=== PATIENT | male | born 1935 | race Caucasian/White ===

== ENCOUNTER → 2017-08-04 | Outpatient (CLI) | payer MEDICARE, BC ==
--- NOTE | 2017-08-04 07:50 | US ---
EXAMINATION TYPE: US venous doppler duplex LE DATE OF EXAM: 08/04/2017 7:30 AM COMPARISON: NONE CLINICAL HISTORY: M79.661 Pain in Left Leg,[id number] Pain Lt Lower Leg. SIDE PERFORMED: bilateral TECHNIQUE: The lower extremity deep venous system is examined utilizing real time linear array sonog brian with graded compression, doppler sonography and color-flow sonography. VESSELS IMAGED: External Iliac Vein (EIV) Common Femoral Vein Deep Femoral Vein Greater Saphenous Vein * Femoral Vein Popliteal Vein Small Saphenous Vein * Proximal Calf Veins (* superficial vessels) Right Leg: neg for RLE dvt; there is a 4.9 x 1.2 x 4.2cm complex pop fossa cyst Left Leg: neg for LLE dvt; there is a 6.8 x 2.3 x 5.1cm complex pop fossa cyst IMPRESSION: 1. No ultrasound evidence of lower extremity deep venous thrombosis. 2. Bilateral popliteal cysts.
== END | disposition home or self-care (01) ==
LOC: RADUSWWP 06:53
PROVIDERS: ATTEND Internal Medicine
DX: M71.22 Synovial cyst of popliteal space [Baker], left knee (principal); M71.21 Synovial cyst of popliteal space [Baker], right knee
CPT/HCPCS: 93970

== ENCOUNTER → 2018-07-31 | Outpatient (CLI) | payer MEDICARE, BC ==
[2018-07-31 13:11] LABS: Appearance,Urine Clear (Clear); Bilirubin,Urine Negative (Negative); Blood,Urine Negative (Negative); Color,Urine Yellow; Glucose,Urine (UA) Negative (Negative); Ketones,Urine Negative (Negative); Leukocyte Esterase,Urine Negative (Negative); Nitrite,Urine Negative (Negative); PH, Urine 6.5 (5.0-8.0); Protein,Urine Negative (Negative); Specific Gravity,Urine 1.014 (1.001-1.035); Urobilinogen,Urine <2.0 mg/dL (<2.0)
[2018-07-31 13:15] LABS: INR 1.1 (<1.2); Partial Thromboplastin Time 23.5 sec (22.0-30.0); Prothrombin Time 10.3 sec (9.0-12.0)
[2018-07-31 13:24] LABS: Albumin 4.2 g/dL (3.5-5.0); Calcium 9.6 mg/dL (8.4-10.2); Total Bilirubin 0.7 mg/dL (0.2-1.3); Total Protein 7.9 g/dL (6.3-8.2)
== END ==
LOC: LABWHC1 11:33
PROVIDERS: ATTEND Orthopaedic Surgery
DX: Z01.818 Encounter for other preprocedural examination (principal); Z01.812 Encounter for preprocedural laboratory examination; Z51.81 Encounter for therapeutic drug level monitoring; Z79.01 Long term (current) use of anticoagulants
CPT/HCPCS: 36415; 80053; 81003; 85610; 85730; 87070; 93005

== ENCOUNTER 2018-08-07 07:01 | Inpatient (IN) | payer MEDICARE, BC ==
[2018-08-01 08:28] VITALS: BMI 29.9
[~2018-08-07 07:01] MED LIST: ACETAMINOPHEN TAB 500 MG TAB PO ONE; MELOXICAM 7.5 MG TAB PO ONE; ROPIVACAINE 246.25 MG, EPINEPHrine 0.5 MG, KETOROLAC 30 MG, cloNIDine HCL/PF 80 MCG, WA... MISCELLANE ONE; TRANEXAMIC ACID 1,000 MG in SODIUM CHLORIDE 0.9% 50 ML IVPB ONE; ceFAZolin IN SWFI 2 GM/20 ML SYRINGE IVP ONE
[2018-08-07] MEDS ORDERED: NA PHOS,M-B/NA PHOS,DI-BA 133 ML ENEMA RECTAL PRN (07:08)
[2018-08-07] MEDS ORDERED: HYDROmorphone 1 MG/ML 1 ML SYRINGE IVP PRN ×3 (07:08)
[2018-08-07] MEDS ORDERED: ONDANSETRON 4 MG/2 ML VIAL IVP PRN (07:08)
[2018-08-07] MEDS ORDERED: DIAZEPAM 5 MG TAB PO PRN (07:08)
[2018-08-07] MEDS ORDERED: HYDROcodone/APAP 5-325MG 1 EACH TAB PO PRN (07:08)
[2018-08-07] MEDS ORDERED: BISACODYL 10 MG SUPP RECTAL PRN (07:08)
[2018-08-07] MEDS ORDERED: MAGNESIUM HYDROXIDE 2,400 MG/10 ML CUP PO PRN (07:08)
[2018-08-07] MEDS ORDERED: NALOXONE 0.4 MG/ML 1 ML VIAL IV PRN (07:08)
[2018-08-07] MEDS ORDERED: LIDOCAINE 1% 20 ML VIAL (10MG/ML) FOR IV START INTRADERMA ONE (07:47)
[2018-08-07] MEDS ORDERED: MIDAZOLAM 2 MG/2 ML VIAL ONE ×2 (07:47→08:46)
[2018-08-07] MEDS ORDERED: LACTATED RINGERS 1,000 ML IV ONE (07:49)
[2018-08-07] MEDS ORDERED: ONDANSETRON 4 MG/2 ML VIAL IVP ONE (07:51)
[2018-08-07] MEDS ORDERED: DEXAMETHASONE SOD PHOS (MDV) 100 MG/10 ML VIAL IVP ONE (07:52)
[2018-08-07] MEDS ORDERED: fentaNYL (PF) 50 MCG/ML 2 ML AMP ONE ×2 (08:06→08:46)
[2018-08-07] MEDS ORDERED: MIDAZOLAM 2 MG/2 ML VIAL IVP ONE (08:24)
[2018-08-07] MEDS ORDERED: SODIUM CHLORIDE 0.9% 100 ML BAG ONE (08:46)
[2018-08-07] MEDS ORDERED: TRANEXAMIC ACID 1,000 MG/10 ML VIAL ONE (08:46)
[2018-08-07] MEDS ORDERED: ASPIRIN 325 MG TAB PO SCH (09:00)
[2018-08-07] MEDS ORDERED: ceFAZolin 3,000 MG in SODIUM CHLORIDE 0.9% IRRIGATIO 3,000 ML IRRIGATION ONE (09:14)
[2018-08-07] MEDS ORDERED: ROPIVACAINE 1,100 MG, SODIUM CHLORIDE 0.9% 330 ML MISCELLANE PRN ×2 (09:35)
--- NOTE | 2018-08-07 09:37 | P.ONQ ---
Anesthesiology Proc Note - PNB - Peripheral Nerve Block Performed Left Adductor Canal Infusion Time Out Performed: No Procedure Start Time: 08:00 Procedure Stop Time: 08:20 Indication: Acute Post-Operative Pain, Requested by physician Sedation Type: Sedate with meaningful contact maintained Preparation: Sterile Dressing Position: Supine Catheter: Indwelling Needle Types: On-Q Needle Size: 100mm (4") Needle Gauge: 21 Technique: Ultrasound Injectate: 0.5% Ropivacaine (see comment for volume) Blood Aspirated: No Pain Paresthesia on Injection Noted: No Resistance on Injection: Normal Events: Uneventful and Well Tolerated
[2018-08-07 10:44] VITALS: RESP 16
--- NOTE | 2018-08-07 11:15 | XR ---
EXAMINATION TYPE: XR knee limited LT DATE OF EXAM: 08/07/2018 COMPARISON: NONE TECHNIQUE: Two views submitted HISTORY: Post op FINDINGS: There is a prosthetic knee in near anatomic alignment. There is soft tissue edema and emphysema. IMPRESSION: 1. Postoperative change. Appears in near-anatomic alignment
[2018-08-07] MEDS: SODIUM CHLORIDE 0.9% 1,000 ML IV SCH (11:28)
--- NOTE | 2018-08-07 12:14 | P.OP ---
Date of Procedure: 08/07/18 Preoperative Diagnosis: Severe osteoarthritis left knee Postoperative Diagnosis: Severe osteoarthritis left knee Procedure(s) Performed: Left total knee arthroplasty Implants: Ku and Nephew Oxinium femoral component size 6, left Ku & Nephew Rhonda II left nonporous tibial baseplate size 6 Ku & Nephew size 11 mm Legion XLPE dished articular insert, size 5-6 Ku & Nephew Rhonda II resurfacing patellar component, 35 mm All components were cemented using Arjun bone cement.. The articulation is Oxinium on polyethylene. Anesthesia: spinal Surgeon: Lawrence Victor Data Integrity Analyst #1: Maylin Reyes Estimated Blood Loss (ml): 50 Pathology: other (Bone and cartilage) Condition: stable Disposition: PACU Indications for Procedure: After failure of conservative treatment we discussed the surgical and nonsurgical treatment options at length. Patient wishes to proceed with a total knee arthroplasty. Complications specific to this procedure were discussed at length, including but not limited to infection, bleeding, stiffness , and nerve injury. Patient is aware of all these complications and informed consent was obtained. This was originally patient of my associate Dr. Bailey. Due to time constraints, Dr. Bailey was unable to perform the surgery and asked me to perform the surgery in his absence. I discussed this at length with the patient, and he is agreeable to having me perform his surgery. I had a lengthy discussion about the probable outcomes as well as complications, and he is aware of all. Operative Findings: The operative findings are consistent with severe osteoarthritis of the left knee Description of Procedure: Patient was seen in the preoperative area consent was reviewed and operative site was marked with a skin marker. An adductor canal pain catheter was placed by anesthesia in the preoperative area. Patient was then brought to the operating room and given preoperative antibiotics intravenously. A spinal anesthetic was administered by the anesthesia department. A tourniquet was placed on the upper thigh and the lower extremity was prepped and draped in usual sterile fashion. A gram of transexamic acid was given. A universal timeout was then performed which confirmed the patient's name, surgical site, ALLERGIES, and consent. The lower extremity was then exsanguinated and tourniquet was inflated to 250 mmHg. A standard and anterior midline approach to the knee was performed. The skin and subcutaneous tissue was dissected down to the patellar tendon. A medial parapatellar arthrotomy was then performed. The knee was then extended, the patellar was everted, and the knee was again flexed. Anterior horns of both menisci were excised, and a release was performed to the posterior medial aspect of the knee. On gross visual inspection, there was complete loss of articular cartilage in the medial and patellofemoral joint spaces. There was also significant cartilage damage in the lateral compartment. There were multiple periarticular osteophytes which were then removed with a Ronguer. The femoral canal was then opened with the appropriate drill, and the intramedullary femoral cutting guide was then placed and set for 4 of valgus. The distal femoral cutting block was then pinned in place, and the distal femur was then cut. The cutting block was then removed and the cut was checked for flatness. Next, the sizing guide was then placed and set for 3 external rotation based off of the epicondylar axis and Whitesides line. After the femur was sized, the appropriate 4-in-1 cutting block was then pinned in place. The anterior condyles were cut without notching. The posterior and chamfer cuts were performed while protecting the collateral ligaments. The cutting block was then removed, and the femoral canal was plugged with autologous bone. Attention was then directed to the tibia. The remaining ACL was removed with a Ronguer, and the tibia was then gently subluxed forward with a large bent knee retractor. Any remaining menisci was excised. The posterior lateral corner was cauterized in order to cauterize the lateral geniculate artery. The extra medullary tibial cutting guide was then placed, set for the appropriate rotation , slope, and depth of resection. The proximal tibia cutting guide was then pinned in place. Proximal tibia was then cut and sized. Next trials were then placed with the appropriate-sized insert. The knee was able to fully extend and flex to 130 and was stable throughout all range of motion. The knee was then extended, patella everted. Patella was then measured, and then using an osteotomy guide, the patella was cut at the appropriate level. The patella was then measured and drilled and the patella trial was then placed. The knee was then taken through range of motion with the patella trial and the patella tracked normally. The knee was then extended patella trial was then removed and the patella was everted. Knee was then flexed and lug holes were drilled through the femoral trial and the femoral trial was then removed. The tibial was then exposed, and the tibial broach guide was then pinned in place after it was set for the appropriate rotation to allow for the most coverage without overhang. The tibia was then reamed and broached. The cut surfaces of bone were then irrigated with pulsatile lavage. The posterior structures were injected with the ropivacaine solution. The knee was also irrigated with Irrisept solution. The components were then opened, the cement was mixed, and the components were then cemented in place. The cement was allowed to harden with the knee in full extension. While the cement was hardening, the remaining soft tissues were then injected with a ropivacaine solution, which consisted of 246.25 mg of ropivacaine, 0.5 mg of epinephrine, 30 mg of Toradol, 80 g of clonidine, and 48.45 mL of sterile water, for a total of 100 mL of fluid injected. After the cemented hardened. The tourniquet was released, and hemostasis was obtained. A second gram of transexamic acid was given. The knee was again irrigated. The knee was again taken through range of motion and found to be stable throughout all range of motion of 0-130 , and the patella tracked normally. The fascia was then closed with #2 strata fix suture. The subcutaneous tissue was closed with 3-0 Vicryl and 3-0 strata fix. Dermabond glue was used for the skin and placed with the knee in flexion. The patient was placed in a sterile silver dressing. Patient was then transferred to recovery room in stable condition. The doctor assistant FINESSE Roque was required due the complexity surgery and the need for a skilled surgical garment inspector. She assisted in positioning, draping, retraction, and closure of the wound.
--- NOTE | 2018-08-07 13:31 | P.CONS ---
History of Present Illness - Reason for Consult Consult date: 08/07/18 Medical management Requesting physician: Lawrence Victor - Chief Complaint Status post left total knee arthroplasty - History of Present Illness This is a 83-year-old male, patient of Dr. Lovett. He has a known past medical history of hypertension glaucoma, gout and osteoarthritis. Patient underwent a left total knee arthroplasty with Dr. Victor. He's postop day # 0. Tolerated surgery well. Pain is currently controlled. He denies any chest pain or shortness of breath. Denies any nausea or vomiting. Denies any bowel movement changes or urinary symptoms. Denies any fever or chills or sweats. The been consulted for medical management. Home medications have been reviewed and reconciled. Review of Systems Please refer to HPI otherwise unremarkable Past Medical History Past Medical History: GERD/Reflux, Hypertension, Osteoarthritis (OA) Additional Past Medical History / Comment(s): gout, History of Any Multi-Drug Resistant Organisms: None Reported Past Surgical History: Appendectomy, Orthopedic Surgery Additional Past Surgical History / Comment(s): left carpal tunnel, retina repair left eye with "boot", guillermo cataracts Past Anesthesia/Blood Transfusion Reactions: No Reported Reaction Past Psychological History: No Psychological Hx Reported Smoking Status: Former smoker Past Alcohol Use History: Occasional Additional Past Alcohol Use History / Comment(s): quit smoking 40 yrs ago, smoked for 5 yrs, < 1 PPD. Patient takes 1-2 beers daily Past Drug Use History: None Reported - Past Family History Father Family Medical History: Cancer Mother Family Medical History: Cancer Medications and Allergies Home Medications Medication Instructions Recorded Confirmed Type Allopurinol [Zyloprim] 150 mg PO DAILY 08/01/18 08/07/18 History Aspirin [Adult Low Dose Aspirin EC] 81 mg PO DAILY 08/01/18 08/07/18 History Ivan/D3/Mag11/Zinc/Reinstatement Clerk/Monster/Bor 1 tab PO DAILY 08/01/18 08/07/18 History [Caltrate 600+D Plus Tablet] Cholecalciferol [Vitamin D3] 2,000 unit PO DAILY 08/01/18 08/07/18 History Latanoprost [Xalatan 0.005%] 1 drop BOTH EYES HS 08/01/18 08/07/18 History Metoprolol Succinate [Toprol Xl] 25 mg PO DAILY 08/01/18 08/07/18 History Multivitamins, Thera [Multivitamin 1 tab PO DAILY 08/01/18 08/07/18 History (formulary)] Allergies Allergy/AdvReac Type Severity Reaction Status Date / Time No Known Allergies Allergy Verified 08/07/18 12:42 Physical Exam Vitals: Vital Signs Temp Pulse Pulse Resp BP BP Pulse Ox 08/07/18 10:54 61 16 115/62 100 08/07/18 10:39 97.0 F L 56 L 16 129/60 99 08/07/18 08:36 55 L 96 08/07/18 07:43 98.1 F 60 18 167/74 98 Intake and Output 08/06/18 08/07/18 08/07/18 22:59 06:59 14:59 Intake Total 901 Output Total 50 Balance 851 Intake: IV 901 Output: Estimated Blood Loss 50 Other: Weight 97.522 kg Head normocephalic Neck supple Lungs clear to auscultation bilaterally no wheezing or crackles Heart regular rate and rhythm S1-S2, no rub or gallop Abdomen is soft nontender nondistended positive bowel sounds no hepatosplenomegaly Extremities no edema. Left knee is Darian wrapped with ice packs place. Neuro alert and orientated to 3 Assessment and Plan Assessment: 1. Status post left total knee arthroplasty: Continue aspirin 325 mg twice a day for DVT prophylaxis. Continue pain medication per orthopedics 2. Essential hypertension resume metoprolol 3. History of glaucoma resume eyedrops 4. History of gout continue allopurinol GI prophylaxis Pepcid and DVT prophylaxis aspirin and SCDs Thank you for this consultation. We will continue to follow along during patient's hospitalization. Time with Patient: Greater than 30 (Greater than 60% of the total time spent in counseling and coordination of care.I performed an examination of the patient and discussed their management with the physician Heddler. I have reviewed the Physician Heddler's notes and agree with the documented findings and plan of care)
[2018-08-07] MEDS: ceFAZolin IN SWFI 2 GM/20 ML SYRINGE IVP SCH (15:03)
[2018-08-07] MEDS: HYDROcodone/APAP 5-325MG 1 EACH TAB PO PRN (15:22)
[2018-08-07] MEDS: ASPIRIN 325 MG TAB PO SCH (20:21)
[2018-08-07] MEDS ORDERED: LATANOPROST 0.005% OPHTH DROPS 2.5 ML BTL BOTH EYES SCH (21:00)
[2018-08-07] MEDS ORDERED: SENNOSIDES-DOCUSATE SODIUM 1 EACH TAB PO SCH (21:00)
[2018-08-08] MEDS: ceFAZolin IN SWFI 2 GM/20 ML SYRINGE IVP SCH (00:44)
[2018-08-08] MEDS: HYDROcodone/APAP 5-325MG 1 EACH TAB PO PRN (03:45)
[2018-08-08] MEDS: SODIUM CHLORIDE 0.9% 1,000 ML IV SCH (07:14)
[2018-08-08 07:39] VITALS: BP 164/68; PULSE 65; TEMP 98
[2018-08-08 08:10] LABS: Basophils % (A) 0 %; Eosinophils # (A) 0.1 k/uL (0-0.7); Eosinophils % (A) 1 %; HCT 33.8 % (39.0-53.0); HGB 11.2 gm/dL (13.0-17.5); Lymphocytes # (A) 2.5 k/uL (1.0-4.8); Lymphocytes % (A) 31 %; MCH 32.6 pg (25.0-35.0); MCHC 33.2 g/dL (31.0-37.0); MCV 98.3 fL (80.0-100.0); Mean Platelet Volume 7.6; Monocytes # (A) 0.4 k/uL (0-1.0); Monocytes % (A) 5 %; Neutrophils # (A) 4.9 k/uL (1.3-7.7); Neutrophils % (A) 62 %; Platelet Count 173 k/uL (150-450); RBC 3.43 m/uL (4.30-5.90); RDW 12.7 % (11.5-15.5)
[2018-08-08] MEDS: ASPIRIN 325 MG TAB PO SCH (08:26)
[2018-08-08] MEDS ORDERED: METOPROLOL SUCCINATE (ER) 25 MG TAB.ER.24H PO SCH (09:00)
[2018-08-08] MEDS ORDERED: MELOXICAM 7.5 MG TAB PO SCH (09:00)
[2018-08-08] MEDS ORDERED: ALLOPURINOL 300 MG TAB PO SCH (09:00)
--- NOTE | 2018-08-08 09:07 | P.DS ---
Providers Date of admission: 08/07/18 07:01 Expected date of discharge: 08/08/18 Attending physician: Lawrence Victor Consults: 08/07/18 07:08 Consult Physician Routine Consulting Provider: Agusto Greene Consult Reason/Comments: medial management Do you want consulting provider notified?: Yes Primary care physician: Napoleon Saba Balboa - Discharge Diagnosis(es) (1) Primary osteoarthritis of left knee Current Visit: Yes Status: Acute (2) S/P total knee arthroplasty Current Visit: Yes Status: Acute Hospital Course: This is a 83-year-old male with known history of degenerative arthritis of the left knee. The patient presents for evaluation. After discussion and consideration patient elects to proceed with total knee arthroplasty. The patient is seen preoperatively by Dr. Victor and medically cleared for surgery by their primary care physician. Patient is admitted to [facility] on 08/07/2018 for total knee arthroplasty. The procedures performed without complication or sequelae. The patient is doing well postoperatively. Labs and vital signs are stable on day of discharge. On day of discharge patient's knee incision is healing well. There is minimal erythema. There is no drainage noted at this time. There is minimal soft tissue swelling to the knee. Patient has full foot and ankle motion without difficulty or pain. Neurovascular status to the left lower extremity is intact. Patient is discharged home in good condition. Please see med rec for accurate list of home medications. Plan - Discharge Summary Discharge Rx Participant: Yes New Discharge Prescriptions: New Aspirin 325 mg PO BID #60 tab HYDROcodone/APAP 5-325MG [[place] 5-325] 1 - 2 tab PO Q4-6H PRN #84 tab PRN Reason: Pain Sennosides [Senokot] 1 tab PO BID #60 tablet No Action Multivitamins, Thera [Multivitamin (formulary)] 1 tab PO DAILY Aspirin [Adult Low Dose Aspirin EC] 81 mg PO DAILY Metoprolol Succinate [Toprol Xl] 25 mg PO DAILY Cholecalciferol [Vitamin D3] 2,000 unit PO DAILY Allopurinol [Zyloprim] 150 mg PO DAILY Ivan/D3/Mag11/Zinc/Blackjack Pit Boss/Monster/Bor [Caltrate 600+D Plus Tablet] 1 tab PO DAILY Latanoprost [Xalatan 0.005%] 1 drop BOTH EYES HS Discharge Medication List Allopurinol [Zyloprim] 150 mg PO DAILY 08/01/18 [History] Aspirin [Adult Low Dose Aspirin EC] 81 mg PO DAILY 08/01/18 [History] Ivan/D3/Mag11/Zinc/Blackjack Pit Boss/Monster/Bor [Caltrate 600+D Plus Tablet] 1 tab PO DAILY 08/01 [History] Cholecalciferol [Vitamin D3] 2,000 unit PO DAILY 08/01/18 [History] Latanoprost [Xalatan 0.005%] 1 drop BOTH EYES HS 08/01/18 [History] Metoprolol Succinate [Toprol Xl] 25 mg PO DAILY 08/01/18 [History] Multivitamins, Thera [Multivitamin (formulary)] 1 tab PO DAILY 08/01/18 [History ] Aspirin 325 mg PO BID #60 tab 08/08/18 [Rx] HYDROcodone/APAP 5-325MG [[place] 5-325] 1 - 2 tab PO Q4-6H PRN #84 tab 08/08/18 [ Rx] Sennosides [Senokot] 1 tab PO BID #60 tablet 08/08/18 [Rx] Follow up Appointment(s)/Referral(s): Lawrence Victor DO [Doctor of Osteopathic Medicine] - 2 Weeks Ambulatory/Diagnostic Orders: Continuous Passive Motion (CPM) Machine [DME.AMB1] Time Frame: 3 Weeks, Location : None Selected Activity/Diet/Wound Care/Special Instructions: Weightbearing as tolerated with a walker. CPM 5-6h daily. Leave dressing intact. May be removed by home care nurse in 10 days. May shower with dressing on. Please call [facility] with any questions or concerns, Discharge Disposition: HOME WITH HOME HEALTH SERVICES
--- NOTE | 2018-08-08 10:53 | P.PN ---
Progress Note - Text 08/08 722am 83-year-old male status post total knee replacement. Patient has an On-Q pump for postop pain control with the solution running at 8 mL an hour and has a pain score of 2. Plan is to continue On-Q pump infusion
--- NOTE | 2018-08-08 10:54 | P.PN ---
Subjective Progress Note Date: 08/08/18 This is a 83-year-old male, patient of Dr. Lovett. He has a known past medical history of hypertension glaucoma, gout and osteoarthritis. Patient underwent a left total knee arthroplasty with Dr. Victor. He's postop day # 0. Tolerated surgery well. Pain is currently controlled. He denies any chest pain or shortness of breath. Denies any nausea or vomiting. Denies any bowel movement changes or urinary symptoms. Denies any fever or chills or sweats. The been consulted for medical management. Home medications have been reviewed and reconciled. On 08/08/2018 patient is alert and oriented 3. Patient is eager to go home. Patient has been cleared for discharge from orthopedic surgeon. Patient states he has been up walking around. Patient is planning to be discharged home. At this time patient denies chest pain or shortness breath. Patient denies nausea vomiting or diarrhea. Patient denies any urinary burning or frequency. Patient has remained afebrile. White blood cell count normal. Patient instructed to follow-up closely with primary care provider. Objective - Vital Signs Vital signs: Vital Signs Temp 98 F 08/08/18 07:00 Pulse 65 08/08/18 07:00 Resp 16 08/08/18 07:00 BP 164/68 08/08/18 07:00 Pulse Ox 98 08/08/18 07:00 Intake & Output 08/07/18 08/08/18 08/08/18 18:59 06:59 18:59 Intake Total 1141 920 650 Output Total 50 Balance 1091 920 650 Weight 97.522 kg Intake: IV 901 Intake, IV Titration 520 250 Amount Sodium Chloride 0.9% 1, 520 250 000 ml @ 65 mls/hr IV . [id number] NATHALY Rx#:[id number] Oral 240 400 400 Output: Estimated Blood Loss 50 Other: Voiding Method Toilet Urinal # Voids 3 2 - Exam Head normocephalic Neck supple Lungs clear to auscultation bilaterally no wheezing or crackles Heart regular rate and rhythm S1-S2, no rub or gallop Abdomen is soft nontender nondistended positive bowel sounds no hepatosplenomegaly Extremities no edema. Left knee pain and Darian wrap with ice packs placed. Neuro alert and orientated to 3 - Labs CBC & Chem 7: 08/08/18 07:18 Labs: Abnormal Lab Results - Last 24 Hours (Table) 08/08/18 Range/Units 07:18 RBC 3.43 L (4.30-5.90) m/uL Hgb 11.2 L (13.0-17.5) gm/dL Hct 33.8 L (39.0-53.0) % Assessment and Plan Assessment: 1. Status post left total knee arthroplasty: Continue aspirin 325 mg twice a day for DVT prophylaxis. Continue pain medication per orthopedics. Patient discharged per ortho surgery. Patient will be discharged home on aspirin 325 twice a day. 2. Essential hypertension resume metoprolol 3. History of glaucoma resume eyedrops 4. History of gout continue allopurinol 5. Expected acute blood loss anemia secondary surgery. Hemoglobin 11.2. Repeat CBC has been ordered for 2 days. Patient to follow-up closely with primary care provider Dr. Browne. Patient is being discharged home per orthopedic surgery Thank you for this consultation. We will continue to follow along during patient's hospitalization. I performed an examination of the patient and discussed their management with the Nurse Practitioner. I have reviewed the Nurse Practitioner's notes and agree with the documented findings and plan of care
[2018-08-08] MEDS ORDERED: CHOLECALCIFEROL 1,000 UNIT TAB PO SCH (12:00)
[2018-08-08] MEDS ORDERED: CALCIUM CARB-VIT D 500MG-200UN 1 EACH TAB PO SCH (12:00)
[2018-08-08] MEDS ORDERED: MULTIVITAMINS, THERA 1 EACH TAB PO SCH (12:00)
== END 2018-08-08 13:06 | disposition home health service (06) | DRG 470 ==
LOC: 2ORMAIN 07:01 → 3SUR 10:53
PROVIDERS: ADMIT Orthopaedic Surgery; ATTEND Orthopaedic Surgery
PROC: 0SRD069 Replacement of Left Knee Joint with Oxidized Zirconium on Polyethylene Synthetic Substitute, Cemented, Open Approach (ICD-10-PCS; principal; 2018-08-07 09:00)
DX: M17.12 Unilateral primary osteoarthritis, left knee (principal); D62 Acute posthemorrhagic anemia; Z79.899 Other long term (current) drug therapy; I10 Essential (primary) hypertension; H40.9 Unspecified glaucoma; M10.9 Gout, unspecified; Z87.891 Personal history of nicotine dependence; Z79.82 Long term (current) use of aspirin; Z98.42 Cataract extraction status, left eye; Z98.41 Cataract extraction status, right eye
CPT/HCPCS: 85025; 88300

== ENCOUNTER → 2019-08-07 | Outpatient (CLI) | payer MEDICARE, BC ==
[2019-08-07 10:43] LABS: Appearance,Urine Clear (Clear); Bilirubin,Urine Negative (Negative); Blood,Urine Negative (Negative); Color,Urine Yellow; Glucose,Urine (UA) Negative (Negative); Ketones,Urine Negative (Negative); Leukocyte Esterase,Urine Negative (Negative); Nitrite,Urine Negative (Negative); PH, Urine 6.5 (5.0-8.0); Protein,Urine Negative (Negative); Specific Gravity,Urine 1.019 (1.001-1.035); Urobilinogen,Urine <2.0 mg/dL (<2.0)
[2019-08-07 10:54] LABS: Albumin 4.1 g/dL (3.5-5.0); Calcium 9.4 mg/dL (8.4-10.2); Potassium 4.3 mmol/L (3.5-5.1); Total Bilirubin 0.6 mg/dL (0.2-1.3); Total Protein 7.8 g/dL (6.3-8.2)
[2019-08-07 10:55] LABS: Partial Thromboplastin Time 25.5 sec (22.0-30.0); Prothrombin Time 10.4 sec (9.0-12.0)
== END | disposition home or self-care (01) ==
LOC: LABPAT 09:39
PROVIDERS: ATTEND Orthopaedic Surgery
DX: Z01.812 Encounter for preprocedural laboratory examination (principal); Z01.818 Encounter for other preprocedural examination; Z79.01 Long term (current) use of anticoagulants
CPT/HCPCS: 80053; 81003; 85610; 85730; 87070

== ENCOUNTER 2019-08-20 09:37 | Day surgery (SDC) | payer MEDICARE, BC ==
[2019-08-14 15:38] VITALS: BMI 29.8
[~2019-08-20 09:37] MED LIST changes: +DEXAMETHASONE SOD PHOSPHATE 10 MG/ML 1 ML VIAL IV ONE; +GABAPENTIN 300 MG CAP PO ONE; +HYDROmorphone 0.5 MG/0.5 ML SYRINGE IVP PRN; +LACTATED RINGERS 1,000 ML IV SCH; +LIDOCAINE 1% 20 ML VIAL (10MG/ML) FOR IV START INTRADERMA PRN; +MIDAZOLAM 2 MG/2 ML VIAL IV PRN; +ONDANSETRON 4 MG/2 ML VIAL IVP ONE; +SCOPOLAMINE 1.5MG/72HR PATCH TRANSDERM ONE; +TRANEXAMIC ACID 1,000 MG in SODIUM CHLORIDE 0.9% 100 ML IVPB ONE; -TRANEXAMIC ACID 1,000 MG in SODIUM CHLORIDE 0.9% 50 ML IVPB ONE; -ceFAZolin IN SWFI 2 GM/20 ML SYRINGE IVP ONE
[2019-08-20] MEDS ORDERED: NALOXONE 0.4 MG/ML 1 ML VIAL IV PRN ×2 (11:38→12:13)
--- NOTE | 2019-08-20 11:40 | P.ANPRN ---
Procedure Note - Anesthesia - Nerve Block Performed Right Adductor Canal Infusion Time Out Performed: Yes Date of Procedure: 08/20/19 Procedure Start Time: 10:13 Procedure Stop Time: :23 Location of Patient Procedure: PreOp Indication: Acute Post-Operative Pain, Analgesia, Requested by Surgeon Sedation Type: Sedate with meaningful contact maintained Preparation: Sterile Prep, Sterile Dressing Position: Supine Catheter: Indwelling Needle Types: Pajunk Needle Gauge: 20 Ultrasound used to visualize needle placement: Yes Ultrasound used to observe medication spread: Yes Injectate: 0.5% Ropivacaine (see comment for volume) (20cc) Blood Aspirated: No Pain Paresthesia on Injection Noted: No Resistance on Injection: Normal Image Stored and Saved: Yes Events: Uneventful and Well Tolerated
[2019-08-20] MEDS ORDERED: hydrOXYzine PAMOATE 25 MG CAP PO PRN (12:13)
[2019-08-20] MEDS ORDERED: DIAZEPAM 5 MG TAB PO PRN (12:13)
[2019-08-20] MEDS ORDERED: HYDROmorphone 0.5 MG/0.5 ML SYRINGE IVP PRN ×3 (12:13)
[2019-08-20] MEDS ORDERED: HYDROcodone/APAP 5-325MG 1 EACH TAB PO PRN ×2 (12:13)
[2019-08-20] MEDS ORDERED: MAGNESIUM HYDROXIDE 2,400 MG/10 ML CUP PO PRN (12:13)
[2019-08-20] MEDS ORDERED: NA PHOS,M-B/NA PHOS,DI-BA 133 ML ENEMA RECTAL PRN (12:13)
[2019-08-20] MEDS ORDERED: ONDANSETRON 4 MG/2 ML VIAL IVP PRN (12:13)
[2019-08-20] MEDS ORDERED: BISACODYL 10 MG SUPP RECTAL PRN (12:13)
[2019-08-20] MEDS ORDERED: diphenhydrAMINE 50 MG/ML 1 ML VIAL ONE (12:22)
[2019-08-20] MEDS ORDERED: PROPOFOL 10 MG/ML 20 ML VIAL IV ONE (12:22)
[2019-08-20] MEDS ORDERED: fentaNYL (PF) 50 MCG/ML 2 ML AMP ONE (12:22)
[2019-08-20] MEDS ORDERED: TRANEXAMIC ACID 1,000 MG/10 ML VIAL ONE (12:22)
[2019-08-20] MEDS ORDERED: MIDAZOLAM 2 MG/2 ML VIAL ONE (12:22)
[2019-08-20] MEDS ORDERED: SODIUM CHLORIDE 0.9% 100 ML BAG ONE (12:22)
[2019-08-20] MEDS ORDERED: ceFAZolin 3,000 MG in SODIUM CHLORIDE 0.9% IRRIGATIO 3,000 ML IRRIGATION ONE (12:54)
--- NOTE | 2019-08-20 13:57 | P.OP ---
Date of Procedure: 08/20/19 Preoperative Diagnosis: Severe osteoarthritis right knee Postoperative Diagnosis: Severe osteoarthritis right knee Procedure(s) Performed: Right total knee arthroplasty with Visionaire patient specific knee guides Implants: Ku and Nephew Journey II CR Oxinium cruciate retaining femoral component size 7, right Ku & Nephew Journey right nonporous tibial baseplate size 7 Ku & Nephew Journey II, XLPE Deep Dished articular insert, size 9 mm, Size 7- 8 right Ku & Nephew Journey BCS resurfacing oval patellar component, 35 mm All components were cemented using Pal[place]os R bone cement. Visionaire patient specific guides The articulation is Oxinium on polyethylene. Anesthesia: spinal Surgeon: Lawrence Victor Transport Assistant #1: Maylin Reyes Estimated Blood Loss (ml): 50 Pathology: other (Bone and cartilage) Condition: stable Disposition: PACU Indications for Procedure: After failure of conservative treatment we discussed the surgical and nonsurgical treatment options at length. Patient wishes to proceed with a total knee arthroplasty. Complications specific to this procedure were discussed at length, including but not limited to infection, bleeding, stiffness, and nerve injury. Patient is aware of all these complications and informed consent was obtained Operative Findings: The operative findings are consistent with severe osteoarthritis of the right knee Description of Procedure: Patient was seen in the preoperative area consent was reviewed and operative site was marked with a skin marker. An adductor canal pain catheter was placed by anesthesia in the preoperative area. Patient was then brought to the operating room and given preoperative antibiotics intravenously. A spinal anesthetic was administered by the anesthesia department. A tourniquet was placed on the upper thigh and the lower extremity was prepped and draped in usual sterile fashion. A gram of transexamic acid was given. A universal timeout was then performed which confirmed the patient's name, surgical site, ALLERGIES, and consent. The lower extremity was then exsanguinated and tourniquet was inflated to 250 mmHg. A standard and anterior midline approach to the knee was performed. The skin and subcutaneous tissue was dissected down to the patellar tendon. A medial parapatellar arthrotomy was then performed. The knee was then extended, the patellar was everted, and the knee was again flexed. Anterior horns of both menisci were excised, and a release was performed to the posterior medial aspect of the knee. On gross visual inspection, there was complete loss of articular cartilage in the medial and patellofemoral joint spaces. There was also significant cartilage damage in the lateral compartment. There were multiple periarticular osteophytes. The patient specific guide was placed on the distal femur, and pinned in place. Using the patient specific guide, the distal femoral cut was performed. The cutting block was then removed and the cut was checked for flatness. The appropriate 5-in-1 cutting block was then pinned in place through the holes that were drilled through the patient specific guide. The anterior condyles were cut without notching. The posterior and chamfer cuts were performed while protecting the collateral ligaments. The cutting block was then removed. Attention was then directed to the tibia. The remaining ACL was removed with a Ronguer, and the tibia was then gently subluxed forward with a large bent knee retractor. Any remaining menisci was excised. The posterior lateral corner was cauterized in order to cauterize the lateral geniculate artery. The patient specific guide for the tibia was then placed and was held in place with pins. Pinholes were then placed for rotation of the tibial component as well. Proximal tibia was then cut and sized. Next trials were then placed with the appropriate-sized insert. The knee was able to fully extend and flex to 130 and was stable throughout all range of motion. The knee was then extended, patella everted. Patella was then measured, and then using an osteotomy guide, the patella was cut at the appropriate level. The patella was then measured and drilled and the patella trial was then placed. The knee was then taken through range of motion with the patella trial and the patella tracked normally. The knee was then extended patella trial was then removed and the patella was everted. Knee was then flexed and lug holes were drilled through the femoral trial and the femoral trial was then removed. The tibial was then exposed, and the tibial broach guide was then pinned in place after it was set for the appropriate rotation to allow for the most coverage without overhang. The tibia was then reamed and broached. The cut surfaces of bone were then irrigated with pulsatile lavage. The posterior structures were injected with the ropivacaine solution. The knee was also irrigated with Irrisept solution. The components were then opened, the cement was mixed, and the components were then cemented in place. The cement was allowed to harden with the knee in full extension. While the cement was hardening, the remaining soft tissues were then injected with a ropivacaine solution, which consisted of 246.25 mg of ropivacaine, 0.5 mg of epinephrine, 30 mg of Toradol, 80 g of clonidine, and 48.45 mL of sterile water, for a total of 100 mL of fluid injected. After the cemented hardened. The tourniquet was released, and hemostasis was obtained. A second gram of transexamic acid was given. The knee was again irrigated. The knee was again taken through range of motion and found to be stable throughout all range of motion of 0-130, and the patella tracked normally. The fascia was then closed with #2 strata fix suture. The subcutaneous tissue was closed with 3-0 Vicryl and 3-0 strata fix. Dermabond glue was used for the skin and placed with the knee in flexion. The patient was placed in a sterile silver dressing. Patient was then transferred to recovery room in stable condition. The behavioral assistant FINESSE Roque was required due the complexity surgery and the need for a skilled surgical technologist. She assisted in positioning, draping, retraction, and closure of the wound.
[2019-08-20] MEDS ORDERED: ROPIVACAINE 0.2%-NS ON-Q PUMP 1,090 MG, EMPTY PAIN BALL 1 EACH MISCELLANE PRN (14:33)
[2019-08-20] MEDS ORDERED: LACTATED RINGERS 1,000 ML IV ONE (15:37)
--- NOTE | 2019-08-20 15:57 | XR ---
EXAMINATION TYPE: XR knee limited RT DATE OF EXAM: 08/20/2019 COMPARISON: NONE TECHNIQUE: Two views submitted HISTORY: Post op FINDINGS: There is a prosthetic knee in near anatomic alignment. There is soft tissue edema and emphysema. IMPRESSION: 1. Postoperative change. Appears in near-anatomic alignment
[2019-08-20] MEDS: SODIUM CHLORIDE 0.9% 1,000 ML IV SCH (16:19)
[2019-08-20] MEDS: ASPIRIN 325 MG TAB PO SCH (20:31)
[2019-08-20] MEDS ORDERED: SENNOSIDES-DOCUSATE SODIUM 1 EACH TAB PO SCH (21:00)
[2019-08-20] MEDS ORDERED: LATANOPROST 0.005% OPHTH DROPS 2.5 ML BTL BOTH EYES SCH (21:00)
[2019-08-21] MEDS: SODIUM CHLORIDE 0.9% 1,000 ML IV SCH (02:36)
[2019-08-21 07:34] LABS: Basophils % (A) 0 %; Eosinophils % (A) 0 %; HCT 38.4 % (39.0-53.0); HGB 13.1 gm/dL (13.0-17.5); Lymphocytes # (A) 2.4 k/uL (1.0-4.8); Lymphocytes % (A) 21 %; MCH 32.7 pg (25.0-35.0); MCHC 34.1 g/dL (31.0-37.0); Mean Platelet Volume 6.3; Monocytes # (A) 0.5 k/uL (0-1.0); Monocytes % (A) 4 %; Neutrophils # (A) 8.2 k/uL (1.3-7.7); Neutrophils % (A) 74 %; Platelet Count 216 k/uL (150-450); RDW 12.8 % (11.5-15.5); WBC 11.2 k/uL (3.8-10.6)
--- NOTE | 2019-08-21 07:44 | P.PN ---
Progress Note - Text Progress Note Date: 08/21/19 POD 1 right TKR, doing well. pain on the back of the knee, VAS 1/10. able to ambulate. no erythem or fluctuance, no parasthesia reported. will likely be d/c home today.
[2019-08-21 07:48] VITALS: BP 169/71; PULSE 63; RESP 15; TEMP 97.8
--- NOTE | 2019-08-21 08:23 | P.DS ---
Providers Expected date of discharge: 08/21/19 Attending physician: Lawrence Victor Consults: 08/20/19 12:13 Consult Physician Routine Consulting Provider: Torey Bang Consult Reason/Comments: medical management Do you want consulting provider notified?: Yes Primary care physician: Napoleon Hardingoa - Discharge Diagnosis(es) (1) Primary osteoarthritis of right knee Current Visit: Yes Status: Acute (2) Status post right knee replacement Current Visit: Yes Status: Acute Hospital Course: This is a pleasant 84-year-old male last seen in our office with complaints of right knee pain. Patient has known history of degenerative arthritis of the right knee and presented to discuss options. After discussion and consideration, patient elected to proceed with a total knee arthroplasty of the right knee. The patient was seen preoperatively and medically cleared for surgery by his primary care physician. The patient was admitted to [facility] and underwent right total knee arthroplasty on 08/20/[address] Lawrence Victor. The procedure was performed without complications or sequelae. The patient has done well postoperatively. The patient was seen and evaluated at bedside today and denies any new complaints. Pain is reasonably controlled. Dressing is clean dry and intact. Incision looks fine with no erythema or active drainage. Calf is soft and nontender. The patient has full foot and ankle motion without difficulty. Patient's right lower extremity is neurovascular intact. Patient is orthopedically stable for discharge to home today. Pertinent Studies: Laboratory Tests 08/21/19 07:03 WBC 11.2 H RBC 4.00 L Hct 38.4 L Neutrophils # 8.2 H Patient Condition at Discharge: Stable Plan - Discharge Summary Discharge Rx Participant: Yes New Discharge Prescriptions: New Aspirin 325 mg PO BID #60 tab Sennosides [Senokot] 1 tab PO BID #60 tablet HYDROcodone/APAP 7.5-325MG [[place] 7.5-325] 1 - 2 tab PO Q4-6H PRN #50 tab PRN Reason: Pain No Action Multivitamins, Thera [Multivitamin (formulary)] 1 tab PO DAILY Metoprolol Succinate [Toprol Xl] 25 mg PO DAILY Cholecalciferol [Vitamin D3 (25 Mcg = 1000 Iu)] 2,000 unit PO DAILY Allopurinol [Zyloprim] 150 mg PO DAILY Ivan/D3/Mag11/Zinc/Cask Maker/Monster/Bor [Caltrate 600+D Plus Tablet] 1 tab PO DAILY Latanoprost [Xalatan 0.005%] 1 drop BOTH EYES HS Aspirin [Adult Low Dose Aspirin EC] 81 mg PO DAILY Discharge Medication List Allopurinol [Zyloprim] 150 mg PO DAILY 08/01/18 [History] Ivan/D3/Mag11/Zinc/Cask Maker/Monster/Bor [Caltrate 600+D Plus Tablet] 1 tab PO DAILY 08/01/18 [History] Cholecalciferol [Vitamin D3 (25 Mcg = 1000 Iu)] 2,000 unit PO DAILY 08/01/18 [History] Latanoprost [Xalatan 0.005%] 1 drop BOTH EYES HS 08/01/18 [History] Metoprolol Succinate [Toprol Xl] 25 mg PO DAILY 08/01/18 [History] Multivitamins, Thera [Multivitamin (formulary)] 1 tab PO DAILY 08/01/18 [History] Aspirin [Adult Low Dose Aspirin EC] 81 mg PO DAILY 08/14/19 [History] Aspirin 325 mg PO BID #60 tab 08/20/19 [Rx] Sennosides [Senokot] 1 tab PO BID #60 tablet 08/20/19 [Rx] HYDROcodone/APAP 7.5-325MG [[place] 7.5-325] 1 - 2 tab PO Q4-6H PRN #50 tab 08/21/19 [Rx] Follow up Appointment(s)/Referral(s): Napoleon Browne MD [Primary Care Provider] - 1 Week Lawrence Victor DO [Doctor of Osteopathic Medicine] - 2 Weeks Ambulatory/Diagnostic Orders: Continuous Passive Motion (CPM) Machine [DME.AMB1] Time Frame: 3 Weeks, Location: None Selected Activity/Diet/Wound Care/Special Instructions: Weightbearing as tolerated with a walker. CPM 5-6h daily. Leave dressing intact. May be removed by home care nurse or by patient in 10 days. May shower with dressing on. Recommend use of compression stockings daily for at least 2 weeks during the day to help prevent swelling and blood clots. May remove at night before sleeping. Please follow up with [facility] and call with any questions or concerns, . Discharge Disposition: HOME WITH HOME HEALTH SERVICES
[2019-08-21] MEDS: ASPIRIN 325 MG TAB PO SCH (08:48)
[2019-08-21 08:57] LABS: ALT 20 U/L (21-72); AST 20 U/L (17-59); African American GFR (CKD) >90 (>60 ml/min/1.73 sqM); Albumin 3.3 g/dL (3.5-5.0); Alkaline Phosphatase 53 U/L (38-126); Anion Gap 8 mmol/L; Blood Urea Nitrogen 17 mg/dL (9-20); Calcium 8.9 mg/dL (8.4-10.2); Carbon Dioxide 24 mmol/L (22-30); Chloride 106 mmol/L (98-107); Glucose 97 mg/dL (74-99); Potassium 4.4 mmol/L (3.5-5.1); Sodium 138 mmol/L (137-145); Total Bilirubin 0.6 mg/dL (0.2-1.3); Total Protein 6.6 g/dL (6.3-8.2)
[2019-08-21] MEDS ORDERED: MELOXICAM 7.5 MG TAB PO SCH (09:00)
[2019-08-21] MEDS ORDERED: ALLOPURINOL 300 MG TAB PO SCH (09:00)
[2019-08-21] MEDS ORDERED: METOPROLOL SUCCINATE (ER) 25 MG TAB.ER.24H PO SCH (09:00)
--- NOTE | 2019-08-21 09:59 | P.CONS ---
History of Present Illness - Reason for Consult Consult date: 08/21/19 Medical Management Requesting physician: Lawrence Victor - History of Present Illness This is a 84-year-old male patient of Dr. Browne. Patient presented for an elective right knee arthroplasty with Dr. Victor. Patient is currently postop day 1. Patient has a known past medical history of GERD, hypertension, osteoarthritis and gout. She has had previous left knee replacement. Patient is an ex-smoker and currently drinks 1-2 beers daily. Today patient is currently resting comfortably in bed. Knee dressing is clean dry and intact. White blood cell slightly elevated at 11.2. Patient denies any acute symptoms. Will order urinary analysis prior to discharge. Patient denies chest pain or shortness of breath. Patient denies nausea vomiting or diarrhea. Patient denies any urinary burning or frequency Review of Systems Please refer to HPI otherwise unremarkable Past Medical History Past Medical History: GERD/Reflux, Hypertension, Osteoarthritis (OA) Additional Past Medical History / Comment(s): gout, History of Any Multi-Drug Resistant Organisms: None Reported Past Surgical History: Appendectomy, Joint Replacement, Orthopedic Surgery Additional Past Surgical History / Comment(s): left knee replacement, left carpal tunnel, retina repair left eye with "boot", guillermo cataracts, RIGHT TOTAL KNEE ARTHROPLASTY 08-20-2019, COLONOSCOPY Past Anesthesia/Blood Transfusion Reactions: No Reported Reaction Past Psychological History: No Psychological Hx Reported Smoking Status: Former smoker Past Alcohol Use History: Occasional Additional Past Alcohol Use History / Comment(s): quit smoking 40 yrs ago, smoked for 5 yrs, < 1 PPD. Patient takes 1-2 beers daily Past Drug Use History: None Reported - Past Family History Father Family Medical History: Cancer Mother Family Medical History: Cancer Medications and Allergies Home Medications Medication Instructions Recorded Confirmed Type Allopurinol [Zyloprim] 150 mg PO DAILY 08/01/18 08/20/19 History Ivan/D3/Mag11/Zinc/Monkey Breeder/Monster/Bor 1 tab PO DAILY 08/01/18 08/20/19 History [Caltrate 600+D Plus Tablet] Cholecalciferol [Vitamin D3 (25 2,000 unit PO DAILY 08/01/18 08/20/19 History Mcg = 1000 Iu)] Latanoprost [Xalatan 0.005%] 1 drop BOTH EYES HS 08/01/18 08/20/19 History Metoprolol Succinate [Toprol Xl] 25 mg PO DAILY 08/01/18 08/20/19 History Multivitamins, Thera [Multivitamin 1 tab PO DAILY 08/01/18 08/20/19 History (formulary)] Aspirin [Adult Low Dose Aspirin EC] 81 mg PO DAILY 08/14/19 08/20/19 History Aspirin 325 mg PO BID #60 tab 08/20/19 Rx Sennosides [Senokot] 1 tab PO BID #60 tablet 08/20/19 Rx HYDROcodone/APAP 7.5-325MG [[place] 1 - 2 tab PO Q4-6H PRN #50 tab 08/21/19 Rx 7.5-325] Allergies Allergy/AdvReac Type Severity Reaction Status Date / Time No Known Allergies Allergy Verified 08/20/19 18:30 Physical Exam Vitals: Vital Signs Temp Pulse Resp BP Pulse Ox 08/21/19 07:47 97.8 F 63 15 169/71 93 L 08/21/19 01:35 97.7 F 58 L 14 126/69 95 08/20/19 19:27 97.1 F L 74 16 115/64 97 08/20/19 17:45 68 16 137/76 08/20/19 17:13 56 L 16 126/75 91 L 08/20/19 17:10 59 L 126/70 100 08/20/19 16:55 57 L 123/69 100 08/20/19 16:40 55 L 125/68 08/20/19 16:25 55 L 138/73 08/20/19 16:10 97.6 F 57 L 15 129/66 98 08/20/19 15:30 54 L 16 124/63 97 08/20/19 15:00 53 L 16 120/64 97 08/20/19 14:45 54 L 16 118/62 97 08/20/19 14:30 54 L 14 117/59 95 08/20/19 14:22 96.8 F L 66 18 116/59 94 L 08/20/19 10:38 59 L 18 150/71 96 08/20/19 09:56 98.1 F 67 18 204/104 98 Intake and Output 08/20/19 08/21/19 08/21/19 22:59 06:59 14:59 Intake Total 300 750 Balance 300 750 Intake: Intake, IV Titration 650 Amount Sodium Chloride 0.9% 1, 650 000 ml @ 65 mls/hr IV . [id number] NATHALY Rx#:[id number] Oral 300 100 Other: # Voids 1 1 Head normocephalic Neck supple Lungs clear to auscultation bilaterally no wheezing or crackles Heart regular rate and rhythm S1-S2, no rub or gallop Abdomen is soft nontender nondistended positive bowel sounds no hepatosplenomegaly Extremities no edema. Right knee dressing is clean dry and intact Neuro alert and orientated to 3 Results CBC & Chem 7: 08/21/19 07:03 08/21/19 07:03 Labs: Abnormal Lab Results - Last 24 Hours (Table) 08/21/19 08/21/19 Range/Units 07:03 07:03 WBC 11.2 H (3.8-10.6) k/uL RBC 4.00 L (4.30-5.90) m/uL Hct 38.4 L (39.0-53.0) % Neutrophils # 8.2 H (1.3-7.7) k/uL ALT 20 L (21-72) U/L Albumin 3.3 L (3.5-5.0) g/dL Assessment and Plan Assessment: 1. Status post total right knee arthroplasty with Dr. Victor. Patient is currently postop day 1. Patient currently on aspirin for DVT prophylaxis 2. History of GERD 3. History of osteoarthritis with previous left knee arthroplasty 4. Ex-smoker 5. Essential hypertension 6. Leukocytosis. White blood cell slightly elevated 11.2 urinary analysis will be ordered Thank you for this consultation we'll continue to follow patient closely throughout stay Time with Patient: Greater than 30 (Greater than 60% of the total time spent in counseling and coordination of care. I performed an examination of the patient and discussed their management with the Nurse Practitioner. I have reviewed the Nurse Practitioner's notes and agree with the documented findings and plan of care)
== END 2019-08-21 13:10 | disposition home health service (06) ==
LOC: OR 09:37 → 4SSUR 14:58 → OR 08-21 13:10
PROVIDERS: ATTEND Orthopaedic Surgery
DX: M17.11 Unilateral primary osteoarthritis, right knee (principal); I10 Essential (primary) hypertension; H40.9 Unspecified glaucoma; M10.9 Gout, unspecified; H91.90 Unspecified hearing loss, unspecified ear; E78.5 Hyperlipidemia, unspecified; K21.9 Gastro-esophageal reflux disease without esophagitis; D72.829 Elevated white blood cell count, unspecified; Z96.652 Presence of left artificial knee joint; Z87.891 Personal history of nicotine dependence; Z97.3 Presence of spectacles and contact lenses; Z90.49 Acquired absence of other specified parts of digestive tract; Z98.42 Cataract extraction status, left eye; Z98.41 Cataract extraction status, right eye; Z96.1 Presence of intraocular lens; Z98.890 Other specified postprocedural states; Z79.82 Long term (current) use of aspirin; Z79.899 Other long term (current) drug therapy; Z80.52 Family history of malignant neoplasm of bladder; Z80.49 Family history of malignant neoplasm of other genital organs
CPT/HCPCS: 97161; 64448; 76942; 80053; 85025; 88300; 73560; 27447; C1713; C1776; J2250; J0171; J1200; J1100; J0690 ×3; J2405; J3010; J1885; J2795 ×2; J2704; J0735